=== PATIENT | female | born 1980 | race Caucasian/White ===

== ENCOUNTER 2016-12-27 10:41 | Day surgery (SDC) | payer BC ==
[~2016-12-27 10:41] MED LIST: Lactated Ringers 1,000 ML IV SCH; Lidocaine 2% 5 ML SDV ONE; Midazolam 1 MG/ML 2 ML SDV ONE; Misoprostol 200 MCG Tab ONE; Ondansetron 4 MG/2 ML SDV ONE; Propofol 200 MG/20 ML SDV ONE; Sodium Chloride 0.9% 10 ML Syringe FLUSH PRN; Sodium Chloride 0.9% 2.5 ML Syringe FLUSH PRN; fentaNYL 250 MCG/5 ML SDV ONE
[2016-12-27] MEDS ORDERED: Scopolamine 1.5 MG Transdermal Patch TOP ONE (11:00)
[2016-12-27] MEDS ORDERED: Propofol 200 MG/20 ML SDV ONE ×2 (11:03)
[2016-12-27] MEDS ORDERED: diphenhydrAMINE 50 MG/ML SDV ONE (11:08)
--- NOTE | 2016-12-27 11:14 | PCM.PREANE ---
Preanesthetic Assessment - Anesthesia/Transfusion/Family Hx Anesthesia History: Prior Anesthesia Reaction Type of Anesthesia Reaction: Excessive Nausea/Vomiting Other Type of Anesthesia Reaction Comment: pt is adopted, unsure of family hx Family History of Anesthesia Reaction: No Transfusion History: No Prior Transfusion(s) Intubation History: Unknown - Review of Systems General: No Symptoms Pulmonary: No Symptoms Cardiovascular: No Symptoms Gastrointestinal: No Symptoms, Nausea Other: Reports: None - Physical Assessment Height: 1.62 m Weight: 68.039 kg ASA Class: 2 Mental Status: Alert & Oriented x3 Airway Class: Mallampati = 2 Dentition: Reports: Normal Dentition Thyro-Mental Finger Breadths: 3 Mouth Opening Finger Breadths: 3 ROM/Head Extension: Full Lungs: Clear to Auscultation, Normal Respiratory Effort Cardiovascular: Regular Rate, Regular Rhythm - Allergies Allergies/Adverse Reactions: Allergies Allergy/AdvReac Type Severity Reaction Status Date / Time amoxicillin [Amoxicillin] Allergy Vomiting Verified 08/22/13 09:01 hydrocodone Allergy Stomach Verified 04/15/15 11:47 Upset pseudoephedrine Allergy Hypertensio Verified 08/22/13 09:01 n - Blood Blood Available: No - Anesthesia Plan Pre-Op Medication Ordered: None - Acknowledgements Anesthesia Type Planned: General Anesthesia Pt an Appropriate Candidate for the Planned Anesthesia: Yes Alternatives and Risks of Anesthesia Discussed w Pt/Guardian: Yes Pt/Guardian Understands and Agrees with Anesthesia Plan: Yes PreAnesthesia Questionnaire HEENT History: Reports: Allergic Rhinitis Cardiovascular History: Reports: None Respiratory History: Reports: None Gastrointestinal History: Reports: Irritable Bowel Syndrome Genitourinary History: Reports: None 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 Musculoskeletal History: Reports: None Neurological History: Reports: Migraines Psychiatric History: Reports: None Endocrine/Metabolic History: Reports: Other (See Below) (dysthymia) Hematologic History: Reports: None Immunologic History: Reports: None Oncologic (Cancer) History: Reports: None Dermatologic History: Reports: None - Past Surgical History Head Surgeries/Procedures: Reports: None HEENT Surgical History: Reports: Oral Surgery GI Surgical History: Reports: Cholecystectomy, EGD Female Surgical History: Reports: D&C - SUBSTANCE USE Smoking Status *Q: Never Smoker Tobacco Use Within Last Twelve Months: No Recreational Drug Use History: No - HOME MEDS Home Medications: Home Meds Ondansetron [Zofran] 4 mg PO Q8HR PRN 04/15/15 [History] Loratadine [Claritin] 10 mg PO DAILY 12/21/16 [History] PNV95/Ferrous Fumarate/FA [ Vitamin Tablet] 1 tab PO DAILY 12/21/16 [ History] - CURRENT (IN HOUSE) MEDS Current Meds: Current Medications Lactated Ringer's (Ringers, Lactated) 1,000 mls @ 100 mls/hr IV ASDIRECTED ZUNILDA Last Admin: 12/27/16 11:09 Dose: 100 mls/hr Sodium Chloride (Saline Flush) 10 ml FLUSH ASDIRECTED PRN PRN Reason: Keep Vein Open Sodium Chloride (Saline Flush) 2.5 ml FLUSH ASDIRECTED PRN PRN Reason: Keep Vein Open Discontinued Medications Diphenhydramine HCl (Benadryl) Confirm Administered Dose 50 mg .ROUTE .STK-MED ONE Stop: 12/27/16 11:09 Fentanyl (Sublimaze) Confirm Administered Dose 250 mcg .ROUTE .STK-MED ONE Stop: 12/27/16 07:54 Lidocaine (Xylocaine-Mpf 2%) Confirm Administered Dose 5 ml .ROUTE .STK-MED ONE Stop: 12/27/16 07:54 Midazolam HCl (Versed 1 Mg/Ml) Confirm Administered Dose 2 mg .ROUTE .STK-MED ONE Stop: 12/27/16 07:54 Misoprostol (Cytotec) Confirm Administered Dose 1,000 mcg .ROUTE .STK-MED ONE Stop: 12/27/16 08:24 Ondansetron HCl (Zofran) Confirm Administered Dose 4 mg .ROUTE .STK-MED ONE Stop: 12/27/16 07:54 Propofol (Diprivan 20 Ml) Confirm Administered Dose 200 mg .ROUTE .STK-MED ONE Stop: 12/27/16 07:54 Propofol (Diprivan 20 Ml) Confirm Administered Dose 200 mg .ROUTE .STK-MED ONE Stop: 12/27/16 11:04 Propofol (Diprivan 20 Ml) Confirm Administered Dose 200 mg .ROUTE .STK-MED ONE Stop: 12/27/16 11:04 Scopolamine (Transderm-Scop) 1.5 mg TOP ONETIME ONE Stop: 12/27/16 11:01
[2016-12-27] MEDS ORDERED: Famotidine 20 MG/2 ML SDV ONE (11:15)
[2016-12-27] MEDS ORDERED: Ketorolac 30 MG/ML SDV ONE (11:54)
--- NOTE | 2016-12-27 12:10 | PCM.OPNOTE ---
- General Post-Op/Procedure Note Date of Surgery/Procedure: 12/27/16 Operative Procedure(s): Suction D&C Findings: Products of conception Pre Op Diagnosis: Missed Post-Op Diagnosis: Same Anesthesia Technique: General LMA Primary Surgeon: Sabina Knox Pathology: POC, sent for chromosomal analysis Fluid Replacement, Intraop: 600 EBL in mLs: 30 Complications: none known Condition: Good Free Text/Narrative:: Dictation [id number]
--- NOTE | 2016-12-27 13:09 | OR ---
SURGEON: Sabina Knox M.D. DATE OF PROCEDURE: 12/27/2016 PREOPERATIVE DIAGNOSIS: Missed . POSTOPERATIVE DIAGNOSIS: Missed . PROCEDURE: Suction dilation and curettage. ESTIMATED BLOOD LOSS: 30 mL. ANESTHESIA: General LMA. FINDINGS: Products of conception. DISPOSITION: The patient to PACU, stable. PROCEDURE IN DETAIL: Cintia is a 36-year-old female, who has recently been diagnosed with an approximately 6-week missed . Ultrasound revealed an embryo initially with no cardiac activity. Within a week, the embryo had regressed and this gestational sac was able to be visualized. Quantitative hCG is following. After discussing findings with her and options, the patient is to proceed with surgical intervention from dilation and curettage. Risks of the procedure have been discussed and proper consent obtained. The patient was taken to the operating room, where she underwent general LMA, placed in modified dorsal lithotomy position. She was prepped and draped in the usual sterile fashion. SCDs to lower extremities. Bladder was drained. A time- out was performed. Speculum was introduced in the vagina. Posterior lip of cervix was grasped with an Allis clamp. The cervix was gently dilated to 8 mm. Using the 8 mm suction curette, this was gently introduced into to the fundus with suction active. I was able to empty the uterine cavity of products of conception. Once felt that the products were adequately emptied, the gentle sharp curettage was performed. All specimens to pathology. The patient is requesting chromosome analysis, we will make that request for her to pathology. Hemostasis appears evident. Sponge and instrument count were correct x2. The patient tolerated the procedure well overall. She will go to PACU in stable condition. Specimens to pathology. JUSTIN / KIESHA /[id number]
[2016-12-27 15:08] VITALS: BP 97/64
== END 2016-12-27 13:45 | disposition home or self-care (01) ==
LOC: MW.SDS 10:41
PROVIDERS: ATTEND Obstetrics & Gynecology
DX: O02.1 Missed abortion (principal); Z88.0 Allergy status to penicillin; Z88.5 Allergy status to narcotic agent; Z90.49 Acquired absence of other specified parts of digestive tract; Z98.890 Other specified postprocedural states
CPT/HCPCS: 59820; 88233; 88305; A9270; J1200; J1885; J2250; J2405; J3010; J7120; 01965; J2704

== ENCOUNTER 2017-09-14 20:00 | Emergency (ER) | payer BC ==
--- NOTE | 2017-09-14 21:13 | EDM.PDOC ---
ED HPI GENERAL MEDICAL PROBLEM - General Chief Complaint: Skin Complaint Stated Complaint: BITE LT SIDE ABDOMEN Time Seen by Provider: 09/14/17 21:02 - History of Present Illness INITIAL COMMENTS - FREE TEXT/NARRATIVE: HISTORY AND PHYSICAL: History of present illness: Patient is a healthy 37-year-old female who presents with several small bites to the left lower abdominal area that occurred 3 days ago and that her burning and itching. The patient said she was working in the garden and was around a lot of aunts spiders and other bugs in something may have bitten her at that time. Initially he was itchy so she used Benadryl which has helped significantly and the swelling has gone down. Today it was more stabbing like in pain localized to that same area. She has no systemic complaints and was just concerned Review of systems: As per history of present illness and below otherwise all systems reviewed and negative. Past medical history: As per history of present illness and as reviewed below otherwise noncontributory. Surgical history: As per history of present illness and as reviewed below otherwise noncontributory. Social history: No reported history of drug or alcohol abuse. Family history: As per history of present illness and as reviewed below otherwise noncontributory. Physical exam: HEENT: Atraumatic, normocephalic, negative for conjunctival pallor or scleral icterus, mucous membranes moist, throat clear, neck supple, nontender, trachea midline. Lungs: Clear to auscultation, breath sounds equal bilaterally, chest nontender. Heart: S1S2, regular and rhythm no overt murmurs Abdomen: Soft, nondistended, nontender. GC below skin exam NABS. Negative for costovertebral tenderness. Pelvis: Stable nontender. Genitourinary: Deferred. Rectal: Deferred. Extremities: Atraumatic, negative for cords or calf pain. Neurovascular unremarkable. Neuro: Awake, alert, oriented. Cranial nerves II through XII unremarkable. Cerebellum unremarkable. Motor and sensory unremarkable throughout. Exam nonfocal. Skin: Normal turgor there are no rashes or lesions seen except for the left lower abdominal wall where there is a linear area of very faint erythema with several small bites seen but no gross swelling fluctuance or induration. There is no discrete tenderness on palpation and there are no other rashes seen in this region. The rash is not vesicular in character but is more punctate and linear. Diagnostics: [] Therapeutics: [] Impression: Nonspecific reaction to insect bite left lower abdomen stable Definitive disposition and diagnosis as appropriate pending reevaluation and review of above. left lower abdomen Pain Score (Numeric/FACES): 6 - Related Data Allergies Allergy/AdvReac Type Severity Reaction Status Date / Time amoxicillin [Amoxicillin] Allergy Vomiting Verified 09/14/17 20:56 hydrocodone Allergy Stomach Verified 09/14/17 20:56 Upset pseudoephedrine Allergy Hypertensio Verified 09/14/17 20:56 n Home Meds: Home Meds Ondansetron [Zofran] 8 mg SL Q8HR PRN 04/15/15 [History] Montelukast [Singulair] 1 tab PO DAILY 09/14/17 [History] Naproxen 1 tab PO ASDIRECTED PRN 09/14/17 [History] Rizatriptan Benzoate [Rizatriptan] 1 tab PO ASDIRECTED 09/14/17 [History] Past Medical History HEENT History: Reports: Allergic Rhinitis Cardiovascular History: Reports: None Respiratory History: Reports: None Gastrointestinal History: Reports: Irritable Bowel Syndrome Genitourinary History: Reports: None 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 Musculoskeletal History: Reports: Fibromyalgia Neurological History: Reports: Migraines Psychiatric History: Reports: None Endocrine/Metabolic History: Reports: Other (See Below) Hematologic History: Reports: None Immunologic History: Reports: None Oncologic (Cancer) History: Reports: None Dermatologic History: Reports: None - Past Surgical History Head Surgeries/Procedures: Reports: None HEENT Surgical History: Reports: Oral Surgery GI Surgical History: Reports: Cholecystectomy, EGD Female Surgical History: Reports: D&C Social & Family History - Family History Family Medical History: Noncontributory - Tobacco Use Smoking Status *Q: Never Smoker - Recreational Drug Use Recreational Drug Use: No ED ROS GENERAL - Review of Systems Review Of Systems: ROS reveals no pertinent complaints other than HPI. ED EXAM, SKIN/RASH Exam: See Below (See dictation) Course - Vital Signs Last Recorded V/S: Last Vital Signs Temp 36.6 C 09/14/17 20:00 Pulse 103 H 09/14/17 20:00 Resp 18 09/14/17 20:00 BP 132/95 H 09/14/17 20:00 Pulse Ox 98 09/14/17 20:00 Departure - Departure Time of Disposition: 21:11 Disposition: Home, Self-Care 01 Condition: Good Clinical Impression: Insect bite Qualifiers: Encounter type: initial encounter Qualified Code(s): W57.XXXA - Bitten or stung by nonvenomous insect and other nonvenomous arthropods, initial encounter - Discharge Information Referrals: Katie Gamino INTERNIST MEDICAL DOCTOR MD [Primary Care Provider] - Additional Instructions: The following information is given to patients seen in the emergency department who are being discharged to home. This information is to outline your options for follow-up care. We provide all patients seen in our emergency department with a follow-up referral. The need for follow-up, as well as the timing and circumstances, are variable depending upon the specifics of your emergency department visit. If you don't have a primary care physician on staff, we will provide you with a referral. We always advise you to contact your personal physician following an emergency department visit to inform them of the circumstance of the visit and for follow-up with them and/or the need for any referrals to a consulting specialist. The emergency department will also refer you to a specialist when appropriate. This referral assures that you have the opportunity for followup care with a specialist. All of these measure are taken in an effort to provide you with optimal care, which includes your followup. Under all circumstances we always encourage you to contact your private physician who remains a resource for coordinating your care. When calling for followup care, please make the office aware that this follow-up is from your recent emergency room visit. If for any reason you are refused follow-up, please contact the [facility] emergency department at and ask to speak to the emergency department charge nurse. [facility] Primary care- Internal [place] [address] Please continue to use Benadryl 50 mg every 6 hours for the next 24 hours and add the Medrol Dosepak you have been prescribed. Please monitor the rash and return to ER as needed and as discussed. Please follow-up with your provider in the clinic in the next few days for reevaluation and further care
[2017-09-15 00:54] VITALS: BP 128/88
== END 2017-09-14 21:25 | disposition home or self-care (01) ==
LOC: MW.ED 20:00
DX: S30.861A Insect bite (nonvenomous) of abdominal wall, initial encounter (principal); Z79.899 Other long term (current) drug therapy; Z88.1 Allergy status to other antibiotic agents; Z88.5 Allergy status to narcotic agent; W57.XXXA Bitten or stung by nonvenomous insect and other nonvenomous arthropods, initial encounter
CPT/HCPCS: 99281

== ENCOUNTER 2020-03-11 06:29 | Day surgery (SDC) | payer BC ==
[2020-03-07 08:46] LABS: BLOOD UREA NITROGEN,BUN 19 mg/dL (7.0-18.0); CARBON DIOXIDE,CO2 26.2 mmol/L (21.0-32.0); CHLORIDE,CL 103 mmol/L (98-107); GLUCOSE RANDOM 91 mg/dL (74-106); POTASSIUM,K 3.8 mmol/L (3.5-5.1); SODIUM,NA 139 mmol/L (136-145)
[~2020-03-11 06:29] MED LIST changes: +DEXTROSE 5% IV ONE; +GENTAMICIN IV ONE; +Gentamicin Pediatric 10 MG/ML 2 ML SDV IV ONE; -Lactated Ringers 1,000 ML IV SCH; -Lidocaine 2% 5 ML SDV ONE; -Midazolam 1 MG/ML 2 ML SDV ONE; -Misoprostol 200 MCG Tab ONE; -Ondansetron 4 MG/2 ML SDV ONE; -Propofol 200 MG/20 ML SDV ONE; +Sodium Chloride 0.9% 10 ML SDV IV PRN; +WATER IV ONE; -fentaNYL 250 MCG/5 ML SDV ONE
[2020-03-11] MEDS ORDERED: Lidocaine 2% 5 ML SDV ONE (07:00)
[2020-03-11] MEDS ORDERED: Ondansetron 4 MG/2 ML SDV ONE (07:00)
[2020-03-11] MEDS ORDERED: Glycopyrrolate 0.2 MG/ML SDV ONE (07:00)
[2020-03-11] MEDS ORDERED: Propofol 200 MG/20 ML SDV ONE (07:01)
[2020-03-11] MEDS ORDERED: Midazolam 1 MG/ML 2 ML SDV ONE (07:01)
[2020-03-11] MEDS ORDERED: fentaNYL 250 MCG/5 ML SDV ONE (07:01)
[2020-03-11] MEDS ORDERED: Lactated Ringers 1,000 ML IV SCH ×2 (07:15→09:30)
[2020-03-11] MEDS ORDERED: Scopolamine 1.5 MG Transdermal Patch TRDERM PRN (07:30)
[2020-03-11] MEDS ORDERED: Methylene Blue 50 MG/10 ML Ampule ONE (07:30)
[2020-03-11] MEDS ORDERED: Fluorescein 5 ML Vial ONE (07:30)
[2020-03-11] MEDS ORDERED: Bupivacaine 0.25% 10 ML SDV ONE (07:31)
[2020-03-11] MEDS ORDERED: Octyl 2-Cyanoacrylate 1 Tube ONE (07:31)
--- NOTE | 2020-03-11 07:31 | PCM.PREANE ---
Preanesthetic Assessment - Anesthesia/Transfusion/Family Hx Anesthesia History: Prior Anesthesia Reaction Type of Anesthesia Reaction: Excessive Nausea/Vomiting Other Type of Anesthesia Reaction Comment: pt is adopted, unsure of family hx Family History of Anesthesia Reaction: No Transfusion History: No Prior Transfusion(s) Intubation History: Unknown - Review of Systems General: No Symptoms Pulmonary: No Symptoms Cardiovascular: No Symptoms Gastrointestinal: No Symptoms Neurological: No Symptoms Other: Reports: None - Physical Assessment NPO Status Date: 03/10/20 Vital Signs: Last Vital Signs Temp 96.8 F L 03/11/20 06:35 Pulse 98 03/11/20 06:35 Resp 16 03/11/20 06:35 BP 127/98 H 03/11/20 06:35 Pulse Ox 99 03/11/20 06:35 Height: 5 ft 3.5 in Weight: 69.4 kg ASA Class: 2 Mental Status: Alert & Oriented x3 Airway Class: Mallampati = 2 Dentition: Reports: Normal Dentition ROM/Head Extension: Full Lungs: Clear to Auscultation, Normal Respiratory Effort Cardiovascular: Regular Rate, Regular Rhythm - Lab Values: Laboratory Last Values WBC 6.58 K/uL (4.0-11.0) 03/07/20 08:21 RBC 4.82 M/uL (4.30-5.90) 03/07/20 08:21 Hgb 14.0 g/dL (12.0-16.0) 03/07/20 08:21 Hct 42.5 % (36.0-46.0) 03/07/20 08:21 MCV 88.2 fL (80.0-98.0) 03/07/20 08:21 MCH 29.0 pg (27.0-32.0) 03/07/20 08:21 MCHC 32.9 g/dL (31.0-37.0) 03/07/20 08:21 RDW Std Deviation 42.3 fl (28.0-62.0) 03/07/20 08:21 RDW Coeff of Andra 13 % (11.0-15.0) 03/07/20 08:21 Plt Count 290 K/uL (150-400) 03/07/20 08:21 MPV 10.30 fL (7.40-12.00) 03/07/20 08:21 Nucleated RBC % 0.0 /100WBC 03/07/20 08:21 Nucleated RBCs # 0 K/uL 03/07/20 08:21 Sodium 139 mmol/L (136-145) 03/07/20 08:21 Potassium 3.8 mmol/L (3.5-5.1) 03/07/20 08:21 Chloride 103 mmol/L (98-107) 03/07/20 08:21 Carbon Dioxide 26.2 mmol/L (21.0-32.0) 03/07/20 08:21 BUN 19 mg/dL (7.0-18.0) H 03/07/20 08:21 Creatinine 0.9 mg/dL (0.6-1.0) 03/07/20 08:21 Est Cr Clr Drug Dosing 70.24 mL/min 03/07/20 08:21 Estimated GFR (MDRD) > 60.0 ml/min 03/07/20 08:21 Glucose 91 mg/dL (74-106) 03/07/20 08:21 Calcium 9.4 mg/dL (8.5-10.1) 03/07/20 08:21 HCG, Qual NEGATIVE (NEG) 03/07/20 08:21 Blood Type A NEGATIVE 03/07/20 08:21 Antibody Screen NEGATIVE 03/07/20 08:21 - Allergies Allergies/Adverse Reactions: Allergies Allergy/AdvReac Type Severity Reaction Status Date / Time amoxicillin [Amoxicillin] Allergy Vomiting Verified 03/05/20 10:40 hydrocodone Allergy Nausea and Verified 03/05/20 10:40 Vomiting pseudoephedrine Allergy Hypertensio Verified 03/05/20 10:40 n - Blood Blood Available: No - Anesthesia Plan Pre-Op Medication Ordered: None - Acknowledgements Anesthesia Type Planned: General Anesthesia Pt an Appropriate Candidate for the Planned Anesthesia: Yes Alternatives and Risks of Anesthesia Discussed w Pt/Guardian: Yes Pt/Guardian Understands and Agrees with Anesthesia Plan: Yes PreAnesthesia Questionnaire HEENT History: Reports: Allergic Rhinitis Cardiovascular History: Reports: None Respiratory History: Reports: None Gastrointestinal History: Reports: Irritable Bowel Syndrome Genitourinary History: Reports: None 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 Musculoskeletal History: Reports: Fibromyalgia Neurological History: Reports: Migraines Psychiatric History: Reports: None Endocrine/Metabolic History: Reports: None Hematologic History: Reports: None Immunologic History: Reports: None Oncologic (Cancer) History: Reports: None Dermatologic History: Reports: None - Past Surgical History Head Surgeries/Procedures: Reports: None HEENT Surgical History: Reports: Oral Surgery Cardiovascular Surgical History: Reports: None Respiratory Surgical History: Reports: None GI Surgical History: Reports: Cholecystectomy, EGD Female Surgical History: Reports: D&C Endocrine Surgical History: Reports: None Neurological Surgical History: Reports: None Musculoskeletal Surgical History: Reports: None Oncologic Surgical History: Reports: None Dermatological Surgical History: Reports: None - SUBSTANCE USE Tobacco Use Status *Q: Never Tobacco User - HOME MEDS Home Medications: Home Meds Ondansetron [Zofran] 8 mg SL Q8HR PRN 04/15/15 [History] Montelukast [Singulair] 1 tab PO DAILY 09/14/17 [History] Naproxen 1 tab PO ASDIRECTED PRN 09/14/17 [History] Rizatriptan Benzoate [Rizatriptan] 1 tab PO ASDIRECTED PRN 09/14/17 [History] Elagolix Sodium [Orilissa] 150 mg PO BEDTIME 03/05/20 [History] Fibrolief 1 tab PO BID 03/05/20 [History] Multivitamin [Multivitamins] 1 tab PO DAILY 03/05/20 [History] Scopolamine [Transderm-Scop] 1 patch TRDERM ASDIRECTED PRN 03/05/20 [History] - CURRENT (IN HOUSE) MEDS Current Meds: Current Medications Clindamycin Phosphate 900 mg/ (Sodium Chloride) 56 mls @ 100 mls/hr IV ONETIME ZUNILDA Lactated Ringer's (Ringers, Lactated) 1,000 mls @ 125 mls/hr IV ASDIRECTED ZUNILDA Last Admin: 03/11/20 07:28 Dose: 125 mls/hr Documented by: Sodium Chloride (Saline Flush) 10 ml FLUSH ASDIRECTED PRN PRN Reason: Keep Vein Open Sodium Chloride (Saline Flush) 2.5 ml FLUSH ASDIRECTED PRN PRN Reason: Keep Vein Open Sodium Chloride (Normal Saline) 10 ml IV ASDIRECTED PRN PRN Reason: IV Use Discontinued Medications Fentanyl (Sublimaze) Confirm Administered Dose 250 mcg .ROUTE .STK-MED ONE Stop: 03/11/20 07:02 Glycopyrrolate (Robinul) Confirm Administered Dose 0.4 mg .ROUTE .STK-MED ONE Stop: 03/11/20 07:01 Gentamicin Sulfate 345 mg/ (Dextrose/Water) 108.625 mls @ 217.25 mls/hr IV ONETIME ONE Stop: 03/11/20 05:29 Lidocaine (Xylocaine-Mpf 2%) Confirm Administered Dose 5 ml .ROUTE .STK-MED ONE Stop: 03/11/20 07:01 Midazolam HCl (Versed 1 Mg/Ml) Confirm Administered Dose 2 mg .ROUTE .STK-MED ONE Stop: 03/11/20 07:02 Ondansetron HCl (Zofran) Confirm Administered Dose 4 mg .ROUTE .STK-MED ONE Stop: 03/11/20 07:01 Propofol (Diprivan 20 Ml) Confirm Administered Dose 200 mg .ROUTE .STK-MED ONE Stop: 03/11/20 07:02
[2020-03-11] MEDS ORDERED: Scopolamine 1.5 MG Transdermal Patch ONE (07:33)
[2020-03-11] MEDS ORDERED: Famotidine 20 MG/2 ML SDV ONE (07:35)
[2020-03-11] MEDS ORDERED: Ketorolac 30 MG/ML SDV ONE (07:36)
[2020-03-11] MEDS ORDERED: Dexamethasone 4 MG/ML 5 ML MDV ONE (07:36)
[2020-03-11] MEDS ORDERED: diphenhydrAMINE 50 MG/ML SDV ONE (07:36)
[2020-03-11] MEDS ORDERED: Sodium Chloride 0.9% 20 ML ONE (08:12)
[2020-03-11] MEDS ORDERED: fentaNYL 100 MCG/2 ML SDV ONE (08:22)
[2020-03-11] MEDS ORDERED: Labetalol 100 MG/20 ML MDV ONE (08:23)
[2020-03-11] MEDS ORDERED: Furosemide 40 MG/4 ML VIAL ONE (08:31)
[2020-03-11] MEDS ORDERED: Naloxone 0.4 MG/ML Syringe IVPUSH PRN (08:48)
[2020-03-11] MEDS ORDERED: 50% Dextrose in Water 50 ML Syringe IVPUSH PRN (08:48)
[2020-03-11] MEDS ORDERED: Atropine 0.1 MG/ML 10 ML Syringe IVPUSH PRN ×2 (08:48)
[2020-03-11] MEDS ORDERED: EPINEPHrine 1:10,000 1 MG/10 ML Syringe IVPUSH PRN (08:48)
[2020-03-11] MEDS ORDERED: Albuterol 0.083% 2.5 MG/3 ML Neb Soln NEB PRN (08:48)
[2020-03-11] MEDS ORDERED: fentaNYL 100 MCG/2 ML SDV IVPUSH PRN (08:48)
[2020-03-11] MEDS ORDERED: HYDROmorphone 2 MG/ML Syringe ONE (08:52)
[2020-03-11] MEDS ORDERED: Belladonna Alkaloids/Opium 16.2-30 MG Supp RECTAL PRN (09:27)
[2020-03-11] MEDS ORDERED: Acetaminophen/oxyCODONE 325-5 MG Tab PO PRN ×2 (09:27)
[2020-03-11] MEDS ORDERED: Morphine 4 MG/ML Syringe IVPUSH PRN (09:27)
[2020-03-11] MEDS ORDERED: Ondansetron 4 MG/2 ML SDV IVPUSH PRN (09:27)
[2020-03-11] MEDS ORDERED: Ketorolac 30 MG/ML SDV IVPUSH ONE (09:27)
[2020-03-11] MEDS ORDERED: Promethazine 25 MG/ML SDV IM PRN (09:27)
--- NOTE | 2020-03-11 09:43 | PCM.OPNOTE ---
- General Post-Op/Procedure Note Date of Surgery/Procedure: 03/11/20 Operative Procedure(s): LAVH/bilateral salpingectomy, right oophorectomy/cystoscopy Findings: Adhesions along posterior cul de sac, right uterosacral region. Tissue appears inflamed along this region. Mobile, small uterus, normal appearing ovaries. 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
--- NOTE | 2020-03-11 10:27 | PCM.POSTAN ---
POST ANESTHESIA ASSESSMENT - MENTAL STATUS Mental Status: Alert, Oriented - VITAL SIGNS Vital Signs: Last Vital Signs Temp 97.7 F 03/11/20 09:33 Pulse 81 03/11/20 10:18 Resp 8 L 03/11/20 10:18 BP 115/77 03/11/20 10:18 Pulse Ox 97 03/11/20 10:18 - RESPIRATORY Respiratory Status: Respiratory Rate WNL, Airway Patent, O2 Saturation Stable - CARDIOVASCULAR CV Status: Pulse Rate WNL, Blood Pressure Stable - GASTROINTESTINAL GI Status: No Symptoms - POST OP HYDRATION Hydration Status: Adequate & Stable
--- NOTE | 2020-03-11 14:00 | OR ---
SURGEON: Sabina Knox M.D. DATE OF PROCEDURE: 03/11/2020 PREOPERATIVE DIAGNOSIS: Pelvic pain. POSTOPERATIVE DIAGNOSIS: Pelvic pain. PROCEDURES: Laparoscopic-assisted vaginal hysterectomy, bilateral salpingectomy, right oophorectomy, cystoscopy. PRIMARY SURGEON: Sabina Knox MD ETHYLBENZENE OXIDIZER: Winter Galan MD ANESTHESIA: General endotracheal anesthesia. ESTIMATED BLOOD LOSS: 50 mL. FLUIDS: 1800 mL of crystalloid. COMPLICATIONS: None known. FINDINGS: Adhesions along the posterior cul-de-sac and right uterosacral region. Uterus overall is mobile. However, the posterior cul-de-sac region appears inflamed. With cystoscopy at the end of the case, bilateral patent ureters are observed. DISPOSITION: The patient to PACU in stable condition. PROCEDURE DETAILS: Cintia is a 40-year-old female who has ongoing difficulties with severe pelvic pain and associated with menses. She has not tolerated conservative therapy in the past due to side effects from medications. At this point, she would like to proceed with definitive surgical intervention. She did do a trial of Lupron. At that time, she said she felt best that she has felt in years. At this juncture; however, she would like to have the left ovary to remain as long as it appeared normal. Otherwise, remainder of the uterus and fallopian tubes and right ovary removed. Risks of procedure have been discussed. Proper consent obtained. The patient was taken to the operating room where she underwent general endotracheal anesthesia, was placed in modified dorsal lithotomy position, was prepped and draped in usual sterile fashion. SCDs to the lower extremity. Art to gravity. A time-out was performed. Received prophylactic antibiotics. A speculum was introduced in the vagina. Anterior lip of the cervix grasped with single-tooth tenaculum. Cervix was gently dilated to 5 mm and the HUMI uterine manipulator was gently introduced. Balloon insufflated. All instruments other than the uterine manipulator were now removed from the vagina. Gloves changed, attention turned abdominally. Infraumbilically, 0.25% Marcaine was introduced. Please see nurse's notes for total amount of local dispensed during the procedure. A 5 mm infraumbilical midline sagittal skin incision was created. Anterior abdominal wall tented upward. Veress needle was introduced. Saline hanging drop test was performed and pneumoperitoneum was then achieved. The Veress needle was removed. Trocar was introduced with laparoscope, peritoneal contents were identified. Left lower quadrant and right lower quadrant trocars were placed under direct visualization after prepping this region with 0.25% Marcaine and creating 5 mm skin incisions. The uterus was mobile. Along the posterior cul-de-sac, the tissue appeared irritated and inflamed. There were filmy adhesions noted along the posterior cul-de-sac and the right uterosacral region. The ovaries overall appeared normal. The ureters were seen peristalsing nicely away from the operative field. Attention was turned to grasping the left fimbria, and using LigaSure, salpingectomy was performed on this side and then securing the utero-ovarian pedicle. This was cauterized and transected with LigaSure. In a similar fashion, the medial aspect of the broad ligament was now secured, cauterized, transected through the round ligament to the base of the broad ligament and now through the cardinal ligament. The anterior peritoneum was tented upward and a bladder flap was created using LigaSure and mobilized bladder nicely away from lower uterine segment and cervix. Remainder of the cardinal ligament pedicle was able to be secured, transected. Attention was now turned to the patient's right side. The IFP was able to be secured with LigaSure, cauterized, transected in similar fashion, moving through the broad ligament, through the round ligament, through the base of the broad ligament, and onto the cardinal ligament. The anterior peritoneum was now also tented upward and mobilized away from the lower uterine segment between the remainder of the bladder flap. Remainder of the cardinal ligament was able to be secured, cauterized, and transected. Hydrodissection was performed along the bladder flap. Attention was now turned vaginally. The pneumoperitoneum was released, laparoscopic instruments were removed, and the patient's hips and knees were flexed further in the stirrups. A weighted speculum was introduced, followed by anterior [place]. Cervix was grasped with Rai clamp. Cervix was circumscribed with Bovie cautery. Anterior and posteriorly, the overlying mucosa was dissected away from the underlying peritoneum sharply and bluntly. The posterior peritoneum was tented downward and entered sharply. Longer weighted speculum replaced the shorter. Anteriorly, peritoneum was entered with Metzenbaum scissors. [place] was now placed to mobilize the bladder away from the operative field. Uterosacral ligament on either side was secured using Sukhdeep clamp, transected, and suture ligated with 2-0 Vicryl. A further pedicle on either side was able to be secured, transected, and suture ligated. The uterus, fallopian tubes, and right ovary were now removed and handed off to the emissions testing technician to be sent to pathology. The pedicles were closely inspected, found to be hemostatic. The uterosacral ligament on either side was now plicated to the vaginal apex. The vaginal cuff was closed using 0 Vicryl in continuous running locked fashion. The bladder was drained. Fluorescein was delivered via IV. Cystoscope was introduced using normal saline as distention media, was able to visualize dome of the bladder followed by the trigone. The left ureteral orifice followed by the right ureteral orifice were able to be visualized and fluorescein-dyed urine was seen streaming from them with nice jets noted. The bladder was now drained. Art catheter was replaced. The vaginal cuff was once again inspected, found to be hemostatic. Attention once again returned abdominally. Gloves changed. Pneumoperitoneum was once again achieved. Laparoscope was introduced. Pedicles were inspected, found to be hemostatic. The pelvis was copiously irrigated, suction dried. Hemostasis once again noted. The relief pressure was decreased to 5 mmHg and once again hemostasis evident. Therefore, the pneumoperitoneum was released. The trocars were removed under direct visualization followed by laparoscope and infraumbilical trocar. Skin edges were reapproximated using 4-0 Monocryl in subcuticular fashion. Sponge, instrument, and needle count was correct x2. The patient tolerated the procedure well overall. She will go to PACU in stable condition, specimens to pathology. JUSTIN / KIESHA /[id number]
[2020-03-11] MEDS: Ketorolac 30 MG/ML SDV IVPUSH PRN ×2 (15:18→21:45)
[2020-03-11] MEDS: Docusate Sodium 100 MG Cap PO SCH (21:45)
--- NOTE | 2020-03-11 21:49 | PCM.SN.2 ---
- Free Text/Narrative Note: Explained procedure to patient. She is doing well overall, no nausea and pain is controlled. She would like catheter removed this evening. Is ambulating in the room. Continue postoperative cares.
[2020-03-12 05:54] LABS: BLOOD UREA NITROGEN,BUN 15 mg/dL (7.0-18.0); CARBON DIOXIDE,CO2 28.3 mmol/L (21.0-32.0); CHLORIDE,CL 105 mmol/L (98-107); GLUCOSE RANDOM 90 mg/dL (74-106); POTASSIUM,K 3.5 mmol/L (3.5-5.1); SODIUM,NA 141 mmol/L (136-145)
[2020-03-12 07:42] VITALS: BP 116/61; PULSE 75
[2020-03-12] MEDS: Docusate Sodium 100 MG Cap PO SCH (08:20)
--- NOTE | 2020-03-12 08:45 | PCM.SURGPN ---
- General Info Date of Service: 03/12/20 POD#: 1 Functional Status: Reports: Pain Controlled, Tolerating Diet, Ambulating, Urinating - Review of Systems General: Denies: Fever, Weakness, Fatigue Pulmonary: Denies: Shortness of Breath Cardiovascular: Denies: Chest Pain, Palpitations, Lightheadedness Gastrointestinal: Denies: Abdominal Pain, Nausea, Vomiting Genitourinary: Denies: Flank Pain Musculoskeletal: Reports: No Symptoms Skin: Reports: No Symptoms Neurological: Reports: No Symptoms - Patient Data Vitals - Most Recent: Last Vital Signs Temp 36.8 C 03/12/20 07:20 Pulse 75 03/12/20 07:20 Resp 14 03/12/20 07:20 BP 116/61 03/12/20 07:20 Pulse Ox 96 03/12/20 07:20 Weight - Most Recent: 69.4 kg I&O - Last 24 Hours: Intake & Output 03/11/20 03/12/20 03/12/20 22:59 06:59 14:59 Intake Total 1400 700 Output Total 1700 500 Balance -300 200 Lab Results Last 24 Hrs: Laboratory Results - last 24 hr 03/12/20 03/12/20 Range/Units 05:05 05:05 WBC 10.17 (4.0-11.0) K/uL RBC 4.06 L (4.30-5.90) M/uL Hgb 11.8 L (12.0-16.0) g/dL Hct 36.2 (36.0-46.0) % MCV 89.2 (80.0-98.0) fL MCH 29.1 (27.0-32.0) pg MCHC 32.6 (31.0-37.0) g/dL RDW Std Deviation 43.5 (28.0-62.0) fl RDW Coeff of Andra 13 (11.0-15.0) % Plt Count 264 (150-400) K/uL MPV 10.70 (7.40-12.00) fL Neut % (Auto) 59.3 (48.0-80.0) % Lymph % (Auto) 32.7 (16.0-40.0) % Long % (Auto) 7.5 (0.0-15.0) % Eos % (Auto) 0.3 (0.0-7.0) % Baso % (Auto) 0.2 (0.0-1.5) % Neut # (Auto) 6.0 H (1.4-5.7) K/uL Lymph # (Auto) 3.3 H (0.6-2.4) K/uL Long # (Auto) 0.8 (0.0-0.8) K/uL Eos # (Auto) 0.0 (0.0-0.7) K/uL Baso # (Auto) 0.0 (0.0-0.1) K/uL Nucleated RBC % 0.0 /100WBC Nucleated RBCs # 0 K/uL Sodium 141 (136-145) mmol/L Potassium 3.5 (3.5-5.1) mmol/L Chloride 105 (98-107) mmol/L Carbon Dioxide 28.3 (21.0-32.0) mmol/L BUN 15 (7.0-18.0) mg/dL Creatinine 1.0 (0.6-1.0) mg/dL Est Cr Clr Drug Dosing 63.22 mL/min Estimated GFR (MDRD) > 60.0 ml/min Glucose 90 (74-106) mg/dL Calcium 8.7 (8.5-10.1) mg/dL Med Orders - Current: Current Medications Belladonna Alkaloids/Opium (B & O Supprettes No. 15a) 1 supp RECTAL Q4H PRN PRN Reason: Abdominal Pain Docusate Sodium (Colace) 100 mg PO BID [facility] Last Admin: 03/12/20 08:20 Dose: 100 mg Documented by: Clindamycin Phosphate 900 mg/ (Sodium Chloride) 56 mls @ 100 mls/hr IV ONETIME [facility] Lactated Ringer's (Ringers, Lactated) 1,000 mls @ 125 mls/hr IV ASDIRECTED [facility] Last Admin: 03/11/20 10:42 Dose: 125 mls/hr Documented by: Ketorolac Tromethamine (Toradol) 30 mg IVPUSH Q6H PRN PRN Reason: Pain (severe 7-10) Stop: 03/16/20 09:27 Last Admin: 03/11/20 21:45 Dose: 30 mg Documented by: Morphine Sulfate (Morphine) 4 mg IVPUSH Q2H PRN PRN Reason: Pain (severe 7-10) Ondansetron HCl (Zofran) 4 mg IVPUSH Q6H PRN PRN Reason: Nausea/Vomiting Last Admin: 03/11/20 11:14 Dose: 4 mg Documented by: Oxycodone/Acetaminophen (Percocet 325-5 Mg) 1 tab PO Q4H PRN PRN Reason: Pain (moderate 4-6) Oxycodone/Acetaminophen (Percocet 325-5 Mg) 2 tab PO Q4H PRN PRN Reason: Pain (moderate 4-6) Promethazine HCl (Phenergan) 25 mg IM Q6H PRN PRN Reason: Nausea/Vomiting Last Admin: 03/11/20 11:44 Dose: 25 mg Documented by: Sodium Chloride (Saline Flush) 10 ml FLUSH ASDIRECTED PRN PRN Reason: Keep Vein Open Sodium Chloride (Saline Flush) 2.5 ml FLUSH ASDIRECTED PRN PRN Reason: Keep Vein Open Sodium Chloride (Normal Saline) 10 ml IV ASDIRECTED PRN PRN Reason: IV Use Discontinued Medications Albuterol (Proventil Neb Soln) 2.5 mg NEB ONETIME PRN PRN Reason: Wheezing Atropine Sulfate (Atropine 0.1 Mg/Ml) 0.5 mg IVPUSH ASDIRECTED PRN PRN Reason: Hypo-perfusion Atropine Sulfate (Atropine 0.1 Mg/Ml) 1 mg IVPUSH ASDIRECTED PRN PRN Reason: Hypo-Perfusion Bupivacaine HCl (Sensorcaine-Mpf 0.25%) Confirm Administered Dose 10 ml .ROUTE .STK-MED ONE Stop: 03/11/20 07:32 Dexamethasone (Dexamethasone) Confirm Administered Dose 20 mg .ROUTE .STK-MED ONE Stop: 03/11/20 07:37 Dextrose/Water (Dextrose 50% In Water) 50 ml IVPUSH ASDIRECTED PRN PRN Reason: Hypoglycemia Diphenhydramine HCl (Benadryl) Confirm Administered Dose 50 mg .ROUTE .STK-MED ONE Stop: 03/11/20 07:37 Epinephrine HCl (Epinephrine 1:10,000) 1 mg IVPUSH ASDIRECTED PRN PRN Reason: ACLS Guidelines Famotidine (Pepcid) Confirm Administered Dose 20 mg .ROUTE .STK-MED ONE Stop: 03/11/20 07:36 Fentanyl (Sublimaze) Confirm Administered Dose 250 mcg .ROUTE .STK-MED ONE Stop: 03/11/20 07:02 Fentanyl (Sublimaze) Confirm Administered Dose 100 mcg .ROUTE .STK-MED ONE Stop: 03/11/20 08:23 Fentanyl (Sublimaze) 50 - 100 mcg IVPUSH Q5M PRN PRN Reason: Pain Fluorescein Sodium (Ak-Fluor) Confirm Administered Dose 5 ml .ROUTE .STK-MED ONE Stop: 03/11/20 07:31 Furosemide (Lasix) Confirm Administered Dose 40 mg .ROUTE .STK-MED ONE Stop: 03/11/20 08:32 Glycopyrrolate (Robinul) Confirm Administered Dose 0.4 mg .ROUTE .STK-MED ONE Stop: 03/11/20 07:01 Hydromorphone HCl (Dilaudid) Confirm Administered Dose 2 mg .ROUTE .STK-MED ONE Stop: 03/11/20 08:53 Gentamicin Sulfate 345 mg/ (Dextrose/Water) 108.625 mls @ 217.25 mls/hr IV ONETIME ONE Stop: 03/11/20 05:29 Last Admin: 03/11/20 07:48 Dose: 217.25 mls/hr Documented by: Lactated Ringer's (Ringers, Lactated) 1,000 mls @ 125 mls/hr IV ASDIRECTED [facility] Last Admin: 03/11/20 07:28 Dose: 125 mls/hr Documented by: Sodium Chloride (Normal Saline) Confirm Administered Dose 20 mls @ as directed .ROUTE .STK-MED ONE Stop: 03/11/20 08:13 Ketorolac Tromethamine (Toradol) Confirm Administered Dose 30 mg .ROUTE .STK-MED ONE Stop: 03/11/20 07:37 Ketorolac Tromethamine (Toradol) 30 mg IVPUSH ONETIME ONE Stop: 03/11/20 09:28 Last Admin: 03/11/20 10:59 Dose: Not Given Documented by: Labetalol HCl (Normodyne) Confirm Administered Dose 100 mg .ROUTE .STK-MED ONE Stop: 03/11/20 08:24 Lidocaine (Xylocaine-Mpf 2%) Confirm Administered Dose 5 ml .ROUTE .STK-MED ONE Stop: 03/11/20 07:01 Methylene Blue (Provayblue) Confirm Administered Dose 50 mg .ROUTE .STK-MED ONE Stop: 03/11/20 07:31 Midazolam HCl (Versed 1 Mg/Ml) Confirm Administered Dose 2 mg .ROUTE .STK-MED ONE Stop: 03/11/20 07:02 Naloxone HCl (Narcan) 0.1 mg IVPUSH ASDIRECTED PRN PRN Reason: Respiratory Depression Octyl Cyanoacrylate (Dermabond Advance) Confirm Administered Dose 0 applic .ROUTE .STK-MED ONE Stop: 03/11/20 07:32 Ondansetron HCl (Zofran) Confirm Administered Dose 4 mg .ROUTE .STK-MED ONE Stop: 03/11/20 07:01 Propofol (Diprivan 20 Ml) Confirm Administered Dose 200 mg .ROUTE .STK-MED ONE Stop: 03/11/20 07:02 Scopolamine (Transderm-Scop) 1.5 mg TRDERM Q72H PRN PRN Reason: Nausea/Vomiting Last Admin: 03/11/20 07:36 Dose: 1.5 mg Documented by: Scopolamine (Transderm-Scop) Confirm Administered Dose 1.5 mg .ROUTE .STK-MED ONE Stop: 03/11/20 07:34 Last Admin: 03/11/20 10:48 Dose: Not Given Documented by: - Exam Wound/Incisions: Healing Well, Dressing Dry and Intact General: Alert, Oriented Lungs: Normal Respiratory Effort Cardiovascular: Regular Rate, Regular Rhythm GI/Abdominal Exam: Normal Bowel Sounds, Soft Extremities: Pedal Edema (trace). No: Sweta's Sign Skin: Warm, Dry, Intact Neurological: No New Focal Deficit Psy/Mental Status: Alert, Normal Affect, Normal Mood Sepsis Event Note - Evaluation Sepsis Screening Result: No Definite Risk - Focused Exam Vital Signs: Vital Signs Temp Pulse Resp BP Pulse Ox 03/12/20 07:20 36.8 C 75 14 116/61 96 03/12/20 04:02 36.3 C 59 L 16 98/60 97 03/12/20 00:10 36.1 C 68 15 97/52 L 96 - Problem List & Annotations (1) Status post hysterectomy SNOMED Code(s): 738118210, 981661877, 104423308 Code(s): Z90.710 - ACQUIRED ABSENCE OF BOTH CERVIX AND UTERUS Status: Acute Current Visit: Yes - Problem List Review Problem List Initiated/Reviewed/Updated: Yes - My Orders Last 24 Hours: Active Orders 24 hr Category Date Time Status Patient Status [ADT] Routine ADT 03/11/20 09:27 Active Notify Provider Intake and Out [RC] ASDIRECTED Care 03/11/20 09:27 Active Notify Provider Vital Signs [RC] ASDIRECTED Care 03/11/20 09:27 Active Oxygen Therapy [RC] ASDIRECTED Care 03/11/20 09:27 Active RT Incentive Spirometry [RC] Q2HWA Care 03/11/20 09:27 Active Ready for Discharge [RC] PER UNIT ROUTINE Care 03/12/20 08:43 Ordered Up With Assistance [RC] PER UNIT ROUTINE Care 03/11/20 09:27 Active Up ad Clarice [RC] PER UNIT ROUTINE Care 03/11/20 09:27 Active Urinary Catheter Removal [RC] Per Unit Routine Care 03/11/20 09:27 Active Vital Signs [RC] PER UNIT ROUTINE Care 03/11/20 09:27 Active Regular Diet [DIET] Diet 03/11/20 Lunch Active Acetaminophen/oxyCODONE [Percocet 325-5 MG] Med 03/11/20 09:27 Active 1 tab PO Q4H PRN Acetaminophen/oxyCODONE [Percocet 325-5 MG] Med 03/11/20 09:27 Active 2 tab PO Q4H PRN Belladonna/Opium [B & O Supprettes No. 15A] Med 03/11/20 09:27 Active 1 supp RECTAL Q4H PRN Docusate Sodium [Colace] Med 03/11/20 21:00 Active 100 mg PO BID Ketorolac [Toradol] Med 03/11/20 09:27 Active 30 mg IVPUSH Q6H PRN Lactated Ringers [Ringers, Lactated] 1,000 ml Med 03/11/20 09:30 Active IV ASDIRECTED Morphine Med 03/11/20 09:27 Active 4 mg IVPUSH Q2H PRN Ondansetron [Zofran] Med 03/11/20 09:27 Active 4 mg IVPUSH Q6H PRN Promethazine [Phenergan] Med 03/11/20 09:27 Active 25 mg IM Q6H PRN Perineal Care [OM.PC] Per Unit Routine Oth 11/03/20 09:28 Ordered Peripheral IV Discontinue [OM.PC] Routine Oth 03/11/20 09:27 Ordered Sequential Compression Device [OM.PC] Per Unit Routine Oth 03/11/20 09:27 Ordered Resuscitation Status Routine Resus Stat 03/11/20 09:27 Ordered Medication Orders Belladonna Alkaloids/Opium (B & O Supprettes No. 15a) 1 supp RECTAL Q4H PRN PRN Reason: Abdominal Pain Docusate Sodium (Colace) 100 mg PO BID [facility] Last Admin: 03/12/20 08:20 Dose: 100 mg Documented by: Admin: 03/11/20 21:45 Dose: 100 mg Documented by: KULDEEP Clindamycin Phosphate 900 mg/ (Sodium Chloride) 56 mls @ 100 mls/hr IV ONETIME [facility] Lactated Ringer's (Ringers, Lactated) 1,000 mls @ 125 mls/hr IV ASDIRECTED [facility] Last Admin: 03/11/20 10:42 Dose: 125 mls/hr Documented by: MARTINE Ketorolac Tromethamine (Toradol) 30 mg IVPUSH Q6H PRN PRN Reason: Pain (severe 7-10) Stop: 03/16/20 09:27 Last Admin: 03/11/20 21:45 Dose: 30 mg Documented by: Admin: 03/11/20 15:18 Dose: 30 mg Documented by: MARTINE Morphine Sulfate (Morphine) 4 mg IVPUSH Q2H PRN PRN Reason: Pain (severe 7-10) Ondansetron HCl (Zofran) 4 mg IVPUSH Q6H PRN PRN Reason: Nausea/Vomiting Last Admin: 03/11/20 11:14 Dose: 4 mg Documented by: MARTINE Oxycodone/Acetaminophen (Percocet 325-5 Mg) 1 tab PO Q4H PRN PRN Reason: Pain (moderate 4-6) Oxycodone/Acetaminophen (Percocet 325-5 Mg) 2 tab PO Q4H PRN PRN Reason: Pain (moderate 4-6) Promethazine HCl (Phenergan) 25 mg IM Q6H PRN PRN Reason: Nausea/Vomiting Last Admin: 03/11/20 11:44 Dose: 25 mg Documented by: HERMRAC Sodium Chloride (Saline Flush) 10 ml FLUSH ASDIRECTED PRN PRN Reason: Keep Vein Open Sodium Chloride (Saline Flush) 2.5 ml FLUSH ASDIRECTED PRN PRN Reason: Keep Vein Open Sodium Chloride (Normal Saline) 10 ml IV ASDIRECTED PRN PRN Reason: IV Use - Assessment Assessment (Free Text/Narrative):: POD 1 status post LAVH/RSO/left salpingectomy - Plan Plan (Free Text/Narrative):: VS and labs are reassuring> Patient is feeling well> Would like to go home. DIscharge to home. Follow up at [facility] 2 and 6 weeks. Discharge instructions reviewed.
== END 2020-03-12 09:08 | disposition home or self-care (01) ==
LOC: MW.SDS 06:29 → MW.MS 10:22 → MW.SDS 03-12 09:08
PROVIDERS: ATTEND Obstetrics & Gynecology
DX: D25.1 Intramural leiomyoma of uterus (principal); D25.2 Subserosal leiomyoma of uterus; N83.01 Follicular cyst of right ovary; Z79.899 Other long term (current) drug therapy; Z98.890 Other specified postprocedural states; Z88.2 Allergy status to sulfonamides; Z88.1 Allergy status to other antibiotic agents; Z88.5 Allergy status to narcotic agent
CPT/HCPCS: 36415; 80048; 84703; 85025; 85027; 86850; 86900; 86901; A9270-GY; J1100; J1170; J1200; J1580; J1885; J1940; J2001; J2250; J2405; J2550; J2704; J3010; J3490; J7060; J7120